=== PATIENT | female | born 1955 | race Caucasian/White ===

== ENCOUNTER → 2017-12-16 07:48 | Outpatient (CLI) | payer OTHER, SELFPAY ==
[2017-12-16 10:26] LABS: Absolute Lymphocyte Count 1.88 X10^3/ul (0.83-4.51); Absolute Neutrophil Count 1.6 X10^3/uL (2.0-7.7); Basophil# 0.02 X10^3/uL; Basophil% 0.5 % (0-1); Eosinophil# 0.16 X10^3/uL; Eosinophils% 4.1 % (0-5); Hematocrit 38.8 % (37-47); Hemoglobin 12.9 g/dl (12.0-15.0); Lymphocyte # 1.88 X10^3/ul (4.0); Mean Corp Hgb Conc 33.2 g/gl (32-36); Mean Corpuscular Hgb 30.8 pg (27.0-32.0); Mean Corpuscular Volume 92.6 fL (81-99); Mean Platelet Vol. 8.9 fl (6.2-12.0); Monocyte# 0.23 X10^3/uL; Monocyte% 5.9 % (0-10); Neutrophil # 1.63 X10^3/uL (2.7-7.7); Neutrophil % 41.5 % (47-70); Platelet Count 234 K/mm3 (150-450); RBC Distribution Width CV 13.1 % (11.6-14.6); RBC Distribution Width SD 44.4 fl (35.1-43.9); Red Blood Count 4.19 M/mm3 (4.2-5.4); White Blood Count 3.9 K/mm3 (4.4-11.0)
[2017-12-16 10:28] LABS: POSITIVE COUNT NO; POSITIVE DIFFERENTIAL NO; POSITIVE MORPHOLOGY NO
[2017-12-16 10:30] LABS: Color, Urine Yellow (Yellow); Glucose, Dipstick Normal (Normal); Ketone-Dipstick Negative (Negative); Leukocyte Esterase-Dipstick Negative /ul (Negative); Nitrite-Dipstick Negative (Negative); Occult Blood-Urine Negative /ul (Negative); Protein-Dipstick Negative (Negative); Urine Bilirubin Dipstick Negative (Negative); Urine Clarity Clear (Clear); Urine Urobilinogen Normal (Normal)
[2017-12-16 10:47] LABS: ALB/GLOB Ratio 1.4 RATIO (0.9-2.4); AST(SGOT) 17 U/L (15-37); Alanine Aminotransfer ALT/SGPT 16 U/L (13-56); Alkaline Phosphatase 40 U/L (45-117); Anion Gap 7 (5-15); BUN 17 mg/dL (7-18); Calcium,Total 8.9 mg/dL (8.5-10.1); Chloride 108 mmol/L (98-107); Cholesterol 232 mg/dL (200); Creatinine, Serum 0.77 mg/dL (0.55-1.02); EST Glomerular Filtration Rate 80 mL/min (>60); Est Glom Filt Rate - Afr Amer 97 mL/min (>60); Globulin 2.8 g/dL (2.2-4.2); Glucose 88 mg/dL (74-106); High Density Lipoprotein 99 mg/dL; Potassium 4.4 mmol/L (3.5-5.1); Protein, Total 6.8 g/dL (6.4-8.2); Sodium Level 144 mmol/L (136-145); Triglycerides 69 mg/dL; Very Low Density Lipoprotein 14 mg/dL (5-40)
== END ==
PROVIDERS: Family Provider Family Medicine; PCP Family Medicine; Visit Provider Family Medicine
DX: Z00.00 Encounter for general adult medical examination without abnormal findings (principal)
CPT/HCPCS: 36415; 80053; 80061; 81002; 85025

== ENCOUNTER → 2018-12-26 | Outpatient (CLI) | payer MEDICARE, OTHER, SELFPAY ==
[2018-12-26 10:31] LABS: Glucose 105 mg/dL (74-106)
[2018-12-26 10:39] LABS: Hemoglobin A1c 5.8 % (4.2-6.3)
== END | disposition home or self-care (01) ==
LOC: MTLAB 07:51
PROVIDERS: Family Provider Family Medicine; PCP Family Medicine; Referring Provider Family Medicine; Visit Provider Family Medicine
DX: R73.9 Hyperglycemia, unspecified (principal)
CPT/HCPCS: 36415; 82947; 83036

== ENCOUNTER 2022-06-03 18:11 | Emergency (ER) | payer MEDICARE, OTHER, SELFPAY ==
[2022-06-03 18:13] VITALS: BP 161/96; PULSE 90; RESP 18; TEMP 35.8; O2SAT 97; BMI 22.8
[2022-06-03 18:37] VITALS: BP 179/69; PULSE 91; RESP 16; O2SAT 98
--- NOTE | 2022-06-03 19:03 | CT_ITS ---
STUDY: CT CERVICAL SPINE WITHOUT CONTRAST REASON FOR EXAM: Female, 66 years old. Pain RADIATION DOSAGE (If Supplied By Facility): CTDIvol = ( 14.76 ) mGy, DLP = ( 319.86 ) mGycm TECHNIQUE: High resolution transaxial imaging was performed without contrast material. Sagittal and coronal images were reconstructed. Individualized dose optimization techniques were used for this CT. COMPARISON: None FINDINGS: Normal craniovertebral junction. Normal anterior atlantoaxial articulation. Normal odontoid process. There is reversal of the normal cervical lordosis. There is no acute fracture. Normal vertebral bodies and posterior osseous elements. C2-3: Normal endplates. Normal disc height and morphology. Normal central canal and intervertebral neuroforamina. C3-4: Normal endplates. Normal disc height and morphology. Normal central canal and intervertebral neuroforamina. C4-5: Mild spurring to the right. No canal stenosis. Right foraminal narrowing. C5-6: Disc space narrowing. Disc bulge and spurring. Mild canal stenosis. Bilateral foraminal narrowing. C6-7: Disc space narrowing. Disc bulge and spurring. No canal stenosis. Neural foramina are patent. C7-T1: Normal endplates. Normal disc height and morphology. Normal central canal and intervertebral neuroforamina. Normal visualized soft tissue structures. CT/Spine Cervical without Contras IMPRESSION: Multilevel degenerative changes, as described above. Electronically Signed: Joseph Sharif MD at 20:19 [facility] ,
--- NOTE | 2022-06-03 19:04 | EKG12_ITS ---
Test Reason : HTN Blood Pressure : / mmHG Vent. Rate : 074 BPM Atrial Rate : 074 BPM P-R Int : 148 ms QRS Dur : 120 ms QT Int : 398 ms P-R-T Axes : 067 036 004 degrees QTc Int : 441 ms Normal sinus rhythm Right bundle branch block Abnormal ECG Confirmed by NICK GERBER, TERESITA ([id number]), offline editor ARI MATHUR ([id number]) on 06/08/2022 12:21:22 PM Referred By: Confirmed By:TERESITA ROMERO MD
--- NOTE | 2022-06-03 19:06 | EX.ED.DYSGE1 ---
HPI History of Present Illness Chief Complaint: Hypertension Narrative Narrative: 66-year-old female presents with hypertension. She has established hypertension and usually takes lisinopril 10 mg daily. Recently, her blood pressure has been elevated above 140 systolic. Her primary care provider increased her lisinopril to 20 mg daily which she takes in the morning. She finally got a blood pressure cuff, and noticed that when she took it her blood pressure was 170 systolic, and 110 diastolic. She initially went to urgent care to see if they were able to do blood pressures and she ended up at [facility]. They received readings of over 200 systolic. She denies any chest pain or shortness of breath, but states over the week she gets occasional neck pain in her cervical spine directly. She thinks it was from craning her neck from reading, and it comes and goes. She presents because of the neck pain and the elevated blood pressure. She does have past medical history of anxiety also. [facility] Medical History Anxiety Hypertension Non-smoker Allergy/AdvReac Type Severity Reaction Status Date / Time No Known Allergies Allergy Verified 06/03/22 18:12 Surgical History History of abdominoplasty History of History of hysterectomy Social History Smoking Status: Never smoker ROS ROS ED ROS Narrative Constitutional: No fever, no chills. Elevated blood pressures, essentially asymptomatic. HEENT: No sore throat. Positive midline neck pain for 1 week. No loss of vision. No rhinorrhea. Cardiovascular: No chest pain. No palpitations. No pedal edema. Respiratory: No cough, no shortness of breath. Abdominal: No abdominal pain. No nausea. No vomiting. Genitourinary: No dysuria. No hematuria. Musculoskeletal: No myalgias. No arthralgias. Neurologic: No headaches. No dizziness. No lightheadedness. Skin: No rash. No change in color. Psychiatric: No depression. No anxiety. EXAM Physical Exam Narrative Exam Narrative: Afebrile. Vital signs noted. HEENT: Normocephalic. Atraumatic. PERRL, EOMI. Neck soft and supple. No point tenderness or step off. Cardiovascular: Regular rate and rhythm. No murmurs, rubs, or gallops appreciated. Respiratory: No tachypnea. Lungs clear to auscultation bilaterally. Gastrointestinal: Abdomen soft, nontender, with normoactive bowel sounds. No rebound or guarding. Neurological: Awake. Alert. Nonfocal, nonlateralizing. Skin: No rash. Normal color. No pallor. Musculoskeletal: No pedal edema. Full range of motion extremities. Const Vital Signs: 06/03/22 18:13 06/03/22 18:37 06/03/22 18:37 Temperature 96.5 F L Temperature Source Temporal Pulse Rate 90 91 Respiratory Rate 18 16 Respiratory Effort Normal Respiratory Pattern Normal Blood Pressure 161/96 H 179/69 H Blood Pressure Mean 117 105 Pulse Ox 97 98 Oxygen Delivery Method Room Air Room Air 06/03/22 20:09 06/03/22 20:35 Temperature Temperature Source Pulse Rate 76 84 Respiratory Rate 14 16 Respiratory Effort Respiratory Pattern Blood Pressure 156/83 H 144/75 H Blood Pressure Mean 107 98 Pulse Ox 97 98 Oxygen Delivery Method Room Air Room Air MDM MDM MDM Narrative Medical decision making narrative: She had elevated blood pressure in triage 161/96. While she was lying on the cot it was 159 systolic. After interview it went up to 179 systolic. I will obtain baseline laboratories and EKG. I do feel that there is a mild anxiety component to this. She will also be given hydralazine 5 mg intravenously. EKG was obtained and interpreted by myself which demonstrates normal sinus rhythm at 74 bpm without ectopy or acute ST changes. No STEMI. I obtained and reviewed her CBC which demonstrates WBC count normal at 4.0, hemoglobin normal at 12.5, normal platelet count of 271. CMP was obtained and reviewed, and shows normal BUN of 11 and creatinine 0.71. Glucose appropriately elevated at 108 with a normal anion gap of 10. LFTs are normal with an AST of 22 and an ALT of 22, alk phos slightly elevated at 44 which I think is nonspecific. I reviewed her CT imaging and agree on my interpretation with the radiologist report of degenerative changes in multilevels. I do feel that her midline neck pain is secondary to osteoarthritis. After 5 mg of hydralazine intravenously her blood pressure is 144/75. I do not want to drop it any lower. She states she has only been on lisinopril 20 mg for 2 days. She is to keep a log of her blood pressure. I also discussed with the patient and her daughter having her new blood pressure monitor calibrated by her primary care physician's office. She will call them tomorrow for an appointment. I feel she be discharged safely home with follow-up. Return instructions to the emergency department were reviewed. I do not feel that she requires observation as her blood pressure has come down to a more acceptable level and she is asymptomatic with it. Disposition was discharged home in stable condition. Lab Data Attestation: I reviewed the patient's lab results. Labs: Laboratory Results - last 24 hr 06/03/22 06/03/22 19:20 19:20 WBC 4.9 RBC 4.13 L Hgb 12.5 Hct 38.3 MCV 92.7 MCH 30.3 MCHC 32.6 RDW Std Deviation 44.2 H RDW Coeff of Vivi 13.0 Plt Count 271 MPV 8.6 Immature Gran % (Auto) 0.200 Neut % (Auto) 55.5 Lymph % (Auto) 34.4 [place] % (Auto) 7.0 Eos % (Auto) 2.3 Baso % (Auto) 0.6 Absolute Neuts (auto) 2.7 Absolute Lymphs (auto) 1.67 Nucleated RBC % 0 Sodium 139 Potassium 3.7 Chloride 103 Carbon Dioxide 26.0 Anion Gap 10 BUN 11 Creatinine 0.71 Estim Creat Clear Calc 42.59 Est GFR (MDRD) Af Amer 105 Est GFR (MDRD) Non-Af 87 BUN/Creatinine Ratio 15.4 Glucose 108 H Calcium 9.4 Total Bilirubin 0.30 AST 22 ALT 22 Alkaline Phosphatase 44 L Total Protein 7.1 Albumin 4.2 Globulin 2.9 Albumin/Globulin Ratio 1.4 Radiography Diagnostic Testing: Clinical Impression(s) from Imaging Studies Cervical Spine CT 06/03/22 19:03 IMPRESSION: Multilevel degenerative changes, as described above. Electronically Signed: Joseph Sharif MD at 20:19 EST , Discharge Plan Triage Chief Complaint: Hypertension ED Provider: Michael Rodriguez Dx/Rx/DC Orders Clinical Impression: Uncontrolled hypertension, Neck pain Instructions: ED High Blood Pressure Hypertension, ED Neck Pain Primary Care Provider: Riya Omer Referrals: Enrique Mcdonald MD [Non-Staff] - Activity Restrictions/Additional Instructions: Call your primary care physician's office tomorrow. Keep a log of your blood pressures. Continue your lisinopril 20 mg orally. Disposition Disposition: Home, Self Care
[2022-06-03] MEDS: hydrALAZINE 20 MG/ML Vial 5 MG IV (19:17)
[2022-06-03 19:25] LABS: Absolute Lymphocyte Count 1.67 X10^3/uL (0.83-4.51); Absolute Neutrophil Count 2.7 X10^3/uL (2.0-7.7); Basophil# 0.03 X10^3/uL; Basophil% 0.6 % (0-1); Eosinophil# 0.11 X10^3/uL; Eosinophils% 2.3 % (0-5); Hematocrit 38.3 % (37-47); Hemoglobin 12.5 g/dL (12.0-15.0); Lymphocyte # 1.67 X10^3/ul (0.83-4.51); Lymphocyte % 34.4 % (19-41); Mean Corp Hgb Conc 32.6 g/dL (32-36); Mean Corpuscular Hgb 30.3 pg (27.0-32.0); Mean Corpuscular Volume 92.7 fL (81-99); Mean Platelet Vol. 8.6 fl (6.2-12.0); Monocyte# 0.34 X10^3/uL; NRBC Flagged by Analyzer 0 % (0-5); Neutrophil # 2.69 X10^3/uL (2.7-7.7); Neutrophil % 55.5 % (47-70); Platelet Count 271 K/mm3 (150-450); RBC Distribution Width SD 44.2 fl (35.1-43.9); Red Blood Count 4.13 M/mm3 (4.2-5.4); White Blood Count 4.9 K/mm3 (4.4-11.0)
[2022-06-03 19:56] LABS: ALB/GLOB Ratio 1.4 RATIO (0.9-2.4); AST(SGOT) 22 U/L (15-37); Alanine Aminotransfer ALT/SGPT 22 U/L (13-56); Albumin, Serum 4.2 g/dL (3.2-5.0); Alkaline Phosphatase 44 U/L (45-117); Anion Gap 10 (5-15); BUN 11 mg/dL (7-18); BUN/Creat Ratio 15.4 RATIO (10-20); Calcium,Total 9.4 mg/dL (8.5-10.1); Chloride 103 mmol/L (98-107); Creatinine, Serum 0.71 mg/dL (0.55-1.02); EST Glomerular Filtration Rate 87 mL/min (>60); Est Glom Filt Rate - Afr Amer 105 mL/min (>60); Estimated Creatinine Clearance 42.59 ml/min; Globulin 2.9 g/dL (2.2-4.2); Glucose 108 mg/dL (74-106); Potassium 3.7 mmol/L (3.5-5.1); Protein, Total 7.1 g/dL (6.4-8.2); Sodium Level 139 mmol/L (136-145)
[2022-06-03 20:09] VITALS: BP 156/83; PULSE 76; RESP 14; O2SAT 97
[2022-06-03 20:35] VITALS: BP 144/75; PULSE 84; RESP 16; O2SAT 98
[2022-06-03 21:47] VITALS: BP 141/82; PULSE 79; RESP 16; O2SAT 97
== END 2022-06-03 21:47 | disposition home or self-care (01) ==
PROVIDERS: Emergency Provider Emergency Medicine; PCP Internal Medicine; Visit Provider Emergency Medicine
DX: I10 Essential (primary) hypertension (principal); F41.9 Anxiety disorder, unspecified; M54.2 Cervicalgia
CPT/HCPCS: 72125; 80053; 85025; 93005; 96374; 99284; A4216